=== PATIENT | male | born 2000 | race Caucasian/White ===

== ENCOUNTER 2023-08-24 03:40 | Emergency (ER) | payer OTHER ==
[~2023-08-24] VITALS: Ht 185.4 cm; Wt 87.5 kg
[2023-08-24 04:33] LABS: BILIRUBIN, URINE NEGATIVE (negative); BLOOD/HGB, URINE NEGATIVE (Negative); KETONE, URINE SMALL (Negative); LEUK ESTERASE, URINE NEGATIVE (negative); NITRITE, URINE NEGATIVE (negative)
[2023-08-24 04:47] LABS: AMPHETAMINES, URINE NEGATIVE (NEGATIVE); BARBITURATES, URINE NEGATIVE (NEGATIVE); BENZODIAZEPINE, URINE NEGATIVE (NEGATIVE); BUPRENORPHINE, URINE NEGATIVE (NEGATIVE); CANNABINOID, URINE NEGATIVE (NEGATIVE); COCAINE, URINE NEGATIVE (NEGATIVE); ECSTASY, URINE NEGATIVE (NEGATIVE); FENTANYL, URINE NEGATIVE (NEGATIVE); METHADONE, URINE NEGATIVE (NEGATIVE); OPIATES, URINE NEGATIVE (NEGATIVE); OXYCODONE, URINE NEGATIVE (NEGATIVE); PHENCYCLIDINE, URINE NEGATIVE (NEGATIVE)
[2023-08-24 05:30] LABS: BASOPHILS 0.4 % (0-2); EOSINOPHILS 1.9 % (0-6); HEMATOCRIT 39.1 % (35.0-50.0); HEMOGLOBIN 13.3 g/dL (12.0-18.0); MCH 30.8 (27-36); MCV 90.6 fl (81-99); MONOCYTES 7.5 % (0-12); NEUTROPHILS 65.2 % (39-80); PLATELET COUNT 169 K/uL (140-440); RBC 4.32 M/ul (4.3-5.7); RDW 13.5 (10.5-15.0)
[2023-08-24 05:55] LABS: ACETAMINOPHEN 0 ug/mL (10-30); ALBUMIN 3.4 g/dL (3.4-5.0); ALBUMIN/GLOBULIN RATIO 1.17 (1.1-2.4); ALCOHOL, MEDICAL <3 ng/dL (<3); ALKALINE PHOSPHATASE 63 U/L (46-116); ALT (SGPT) 25 U/L (14-59); ANION GAP 14.2 (7-21); AST (SGOT) 18 U/L (15-37); BILIRUBIN, TOTAL 0.7 ng/dL (0.2-1.0); BUN/CREATININE RATIO 15.31 (6.0-28.6); CALCIUM 8.2 mg/dL (8.5-10.1); CARBON DIOXIDE 25 mmol/L (21-32); CHLORIDE 105 mmol/L (98-107); CREATININE, SERUM 1.11 mg/dL (0.70-1.30); GLOMERULAR FILTRATION RATE,EST 95 mL/min (>60); POTASSIUM 3.2 mmol/L (3.5-5.1); PROTEIN, TOTAL 6.3 g/dL (6.4-8.2); SALICYLATE 1.6 mg/dL (2.8-20.0); TSH, 3RD GENERATION 2.937 uIU/mL (0.358-3.740); UREA NITROGEN 17 mg/dL (7-18)
[2023-08-24] MEDS ORDERED: POTASSIUM CHLORIDE 10 MEQ TABCR PO ONE (06:00)
[2023-08-24] MEDS ORDERED: OLANZapine 10 MG TABDIS PO ONE (08:45)
[2023-08-24 19:18] VITALS: BP 105/55
--- NOTE | 2023-08-25 09:55 | EKG ---
[facility] [address] [facility] [place] [facility] [place], [place] [address] Signed Normal sinus rhythm Normal ECG No previous ECGs available Confirmed by CINDA FRANCISCO MD ([id number] on 08/25/2023 9:55:01 AM Electronically Signed By: CINDA FRANCISCO 08/25/23 0955 PATIENT NAME: KEKE MACARIO Electrocardiogram DATE OF : [birth year] PHYSICIAN: CINDA FRANCISCO REPORT #: [id number] REPORT IS CONFIDENTIAL AND NOT TO BE RELEASED WITHOUT AUTHORIZATION
== END 2023-08-24 19:19 ==
LOC: ED 03:40
PROVIDERS: Internal Medicine
DX: F29 Unspecified psychosis not due to a substance or known physiological condition (principal); Z88.8 Allergy status to other drugs, medicaments and biological substances
CPT/HCPCS: 36415; 80053; 80307; 81003; 84443; 85025; 93005; 93010; 99285; A9270; G0480; U0002